=== PATIENT | female | born 2000 | race Caucasian/White ===

== ENCOUNTER → 2022-08-18 | Outpatient (CLI) | payer BC, SELFPAY ==
[2022-08-18 12:10] LABS: Erythrocyte Sedimentation Rate 3 mm/hr (0-30)
[2022-08-18 12:14] LABS: Absolute Lymphocyte Count 1.57 X10^3/uL (0.83-4.51); Absolute Neutrophil Count 3.4 X10^3/uL (2.0-7.7); Basophil# 0.04 X10^3/uL; Basophil% 0.7 % (0-1); Eosinophil# 0.02 X10^3/uL; Eosinophils% 0.4 % (0-5); Hematocrit 43.2 % (37-47); Hemoglobin 14.5 g/dL (12.0-15.0); Lymphocyte # 1.57 X10^3/ul (0.83-4.51); Mean Corp Hgb Conc 33.6 g/dL (32-36); Mean Corpuscular Volume 92.3 fL (81-99); Mean Platelet Vol. 11.1 fl (6.2-12.0); Monocyte# 0.36 X10^3/uL; Monocyte% 6.6 % (0-10); NRBC Flagged by Analyzer 0 % (0-5); Neutrophil # 3.42 X10^3/uL (2.7-7.7); Neutrophil % 63.1 % (47-70); Platelet Count 316 K/mm3 (150-450); RBC Distribution Width CV 12.2 % (11.6-14.6); RBC Distribution Width SD 41.1 fl (35.1-43.9); Red Blood Count 4.68 M/mm3 (4.2-5.4); White Blood Count 5.4 K/mm3 (4.4-11.0)
[2022-08-18 12:56] LABS: AST(SGOT) 16 U/L (15-37); Alanine Aminotransfer ALT/SGPT 16 U/L (13-56); Albumin, Serum 3.9 g/dL (3.2-5.0); Alkaline Phosphatase 62 U/L (45-117); Anion Gap 10 (5-15); BUN 7 mg/dL (7-18); BUN/Creat Ratio 7.5 RATIO (10-20); CRP < 2.90 mg/L (0.0-3.0); Calcium,Total 9.1 mg/dL (8.5-10.1); Chloride 107 mmol/L (98-107); Creatinine, Serum 0.94 mg/dL (0.55-1.02); EST Glomerular Filtration Rate 80 mL/min (>60); Est Glom Filt Rate - Afr Amer 96 mL/min (>60); Globulin 3.9 g/dL (2.2-4.2); Glucose 102 mg/dL (74-106); LDH 153 U/L (84-246); Potassium 3.7 mmol/L (3.5-5.1); Protein, Total 7.8 g/dL (6.4-8.2); Sodium Level 141 mmol/L (136-145)
[2022-08-21 14:08] LABS: Anti-Centromere B Ab <0.2 AI (0.0-0.9); Anti-Chromatin <0.2 AI (0.0-0.9); Anti-Jo <0.2 AI (0.0-0.9); Anti-Scleroderma-70 AB <0.2 AI (0.0-0.9); RNP Ab <0.2 AI (0.0-0.9); SJOGREN'S Anti-SS-A test < 0.2 AI (0.0-0.9); SJOGREN'S Anti-SS-B test < 0.2 AI (0.0-0.9); Smith Ab <0.2 AI (0.0-0.9)
[2022-08-21 14:32] LABS: Anti-dsDNA Ab 1 IU/mL (0-9)
[2022-08-21 16:09] LABS: Endomysial Antibody IgA Negative (Negative)
[2022-08-21 17:45] LABS: Immunoglobulin A 201 mg/dL (87-352); t-Transglutaminase IgA <2 U/mL (0-3)
[2022-08-21 18:07] LABS: Albumin 3.8 g/dL (2.9-4.4); Alpha-1-Globulins 0.4 g/dL (0.0-0.4); Alpha-2-Globulins 0.8 g/dL (0.4-1.0); Cytoplasmic Ab (C-ANCA) <1:20 titer (Neg:<1:20); Immunoglobulin A 197 mg/dL (87-352); Immunoglobulin E 12 IU/mL (6-495); Immunoglobulin G 1027 mg/dL (586-1602); Immunoglobulin M 103 mg/dL (26-217); PROEL- TOTAL PROTEIN 7.2 g/dL (6.0-8.5)
[2022-08-21 20:09] LABS: Gastrin, Serum 23 pg/mL (0-115); Perinuclear Ab (P-ANCA) <1:20 titer (Neg:<1:20)
== END | disposition home or self-care (01) ==
PROVIDERS: PCP Family Medicine; Referring Provider Internal Medicine Gastroenterology; Visit Provider Internal Medicine Gastroenterology
DX: R19.7 Diarrhea, unspecified (principal)
CPT/HCPCS: 36415; 80053; 82784; 82785; 82941; 83516; 83615; 84165; 85025; 85652; 86140; 86225; 86235; 86255; 86256; 86334

== ENCOUNTER → 2022-08-19 | Outpatient (CLI) | payer BC, SELFPAY ==
[2022-08-24 09:29] LABS: Calprotectin, Stool 18 ug/g (0-120)
[2022-08-26 11:24] LABS: Pancreatic Elastase, Fecal 163 (>200)
== END | disposition home or self-care (01) ==
LOC: LABSPEC 11:30
PROVIDERS: PCP Family Medicine; Visit Provider Internal Medicine Gastroenterology
DX: K58.9 Irritable bowel syndrome, unspecified (principal); R19.7 Diarrhea, unspecified
CPT/HCPCS: 82653; 83630; 83993; 87177; 87209; 87329; 87493; 87506

== ENCOUNTER → 2022-09-22 | Outpatient (CLI) | payer BC, SELFPAY ==
--- NOTE | 2022-09-22 12:45 | NM_ITS ---
CLINICAL: 21-year-old female with history of chronic nausea. SEMI-SOLID PHASE 99m Tc SULFUR COLLOID GASTRIC EMPTYING STUDY COMPARISON: None available FINDINGS: The patient was administered 1.0 mCi of 99m Tc sulfur colloid mixed with oatmeal and consumed per os. Image acquisitions in the anterior-posterior projections were obtained for 60 minutes. There is prompt visualization of the stomach. There is no gastroesophageal reflux identified. First order kinetics are maintained throughout the duration of the acquisitions. The T ? linear fit was calculated to be 127.31 minutes, (Normal: 12-56 minutes). NM/Gastric Emptying Study IMPRESSION: 1. ABNORMAL 99m Tc sulfur colloid semi-solid phase (oatmeal) gastric emptying imaging examination. A. There is delayed semi-solid phase gastric emptying compared to normal controls with maintained first order kinetics throughout all components of the examination. (Mrak et al, J Nucl Med Tech 38: 186, 2010). Electronically Signed: Jaden Nina, at 13:37 EDT ,
== END | disposition home or self-care (01) ==
LOC: NM 12:39
PROVIDERS: PCP Family Medicine; Referring Provider Internal Medicine Gastroenterology; Visit Provider Internal Medicine Gastroenterology
DX: R19.7 Diarrhea, unspecified (principal)
CPT/HCPCS: 78264; A9541

== ENCOUNTER → 2023-07-06 | Outpatient (CLI) | payer BC, SELFPAY ==
[2023-07-06 16:34] LABS: Platelet Count 345 K/mm3 (150-450); RET-HE 33.6 pg (30-35); Reticulocyte Count 1.32 % (0.5-1.5)
[2023-07-06 17:07] LABS: Vitamin B12 338 pg/mL (211-911)
[2023-07-06 17:19] LABS: Ferritin 18 ng/mL (8-252); Free T3 2.7 pg/mL (2.18-3.98); Iron 61 ug/dL (50-170); Iron Binding Capacity,Total 481 ug/dL (250-450); T4 Free Direct 1.04 ng/dL (0.76-1.46); Thyroid Stim Hormone (TSH) 1.19 uIU/mL (0.358-3.74)
--- OUTSIDE RECORDS SUMMARY | 2023-07-06 17:30 | XMS RPT_ITS | CCD ---
Author Name Unknown Address [address] [place] [address] Organization [facility] Care Team Providers Care Seasoner Hand Name Role Phone [email or web address] Maldonado Unavailable Unavailable GLORIA AGUILAR Unavailable Unavailable GLORIA AGUILAR Unavailable Unavailable Valeria Mejia Unavailable Fidelia Hogue Unavailable [phone] Vicente Esteves Admitting Unavailable Danielito, Dr. Ware Attending Unavailable Danielito, Dr. Ware Referring Unavailable Lennie, Dr. Fidelia Gottlieb Primary Care Un available Lennie, Dr. Fidelia Ponce Primary Care Unav ailable Lennie, Dr. Fidelia Ponce Attending Unav ailable Lennie, Dr. Fidelia Ponce Referring Unav ailable Saldana, Chikis Attending Unavailable Self, Referral Referring Unavailable Lennie, Dr. Fidelia Ponce Primary Care Unav ailable Lennie, Dr. Fidelia Ponce Primary Care Unav ailable Saldana, Chikis Attending Unavailable Saldana, Chikis Referring Unavailable Yo, Chikis Attending Unavailable Lennie, Dr. Fidelia Ponce Primary Care Unav ailable Lennie, Dr. Fidelia Ponce Referring Unav ailable VICENTE ESTEVES Attending Unavailable Dr. Fidelia Hogue Primary Care Unav ailable Allergies Allergy Classification Reported Allergen(s) Allergy Type Date of Onset Reaction(s) Facility (1 source) Seasonal allergy; Translations: [SEASONAL ALLERGIES] Propensity to adverse reactions (disorder) [address] [place] [address] Repository Medications Completed/Discontinued Medications Medication Drug Class(es) Dates Sig (Normalized) Sig (Original) acetaminophen 325 mg / oxyCODONE hydrochloride 5 mg oral tablet (1 source) Opioid Agonist Start: 09-07-2021 take 1 tablet by mouth every four hours as needed for pain oxyCODONE-Acetamino phen 5-325 MG Oral Tablet TAKE 1 TABLET BY MOUTH EVERY 4 HOURS NEEDED FOR POST-OPERATIVE PAIN FOR 2 DAYS Quantity: 8 Refills: 0 Ordered: 07-Sep-2021 DO Start : 07-Sep-2021 Complete amoxicillin 875 mg oral tablet (2 sources) Penicillin-class Antibacterial Start: 08-29-2022 take 1 tablet by mouth once daily Amoxicillin 875 MG Oral Tablet TAKE 1 TABLET EVERY 12 HOURS DAILY. Quantity: 14 Refills: 0 Ordered: 29-Aug-2022 Chikis Saldana MD Start : 29-Aug-2022 Active cholestyramine resin 4000 mg powder for oral suspension (1 source) Bile Acid Sequestrant Start: 06-26-2022 Cholestyramine 4 GM Oral Packet MIX THE CONTENTS OF 1 POWDER PACKET WITH 2 TO 6 OZ OF NONCARBONATED BEVERAGE AND DRINK 3 TIMES DAILY. Quantity: 90 Refills: 5 Ordered: 26-Jun-2022 Fidelia Hogue MD Start : 26-Jun-2022 Active Ethinyl Estradiol / Ferrous fumarate / Norethindrone (4 sources) Estrogen Start: 12-20-2021 take 1 tablet by mouth once daily Lo Loestrin Fe 1 MG-10 MCG / 10 MCG Oral Tablet TAKE 1 TABLET DAILY DIRECTED. Quantity: 1 Refills: 11 Ordered: 20-Dec-2021 Chikis Saldana DO Start : 20-Dec-2021 Active fluconazole 100 mg oral tablet (4 sources) Azole Antifungal Start: 08-25-2022 Fluconazole 100 MG Oral Tablet TAKE 1 TABLET Other one tab every 48 hrs x 3 doses Quantity: 3 Refills: 1 Ordered: 25-Aug-2022 Chikis Saldana MD Start : 25-Aug-2022 Active Microgestin 1/20 1-20 MG-MCG Oral Tablet (1 source) Start: 11-09-2022 take 1 tablet by mouth once daily, then take 7 tablets by mouth once daily Microgestin 1/20 1-20 MG-MCG Oral Tablet TAKE 1 TABLET BY MOUTH ONCE DAILY FOR 21 DAYS TAKE 7 TABLET FREE DAYS Quantity: 21 Refills: 0 Ordered: 09-Nov-2022 Chikis Saldana MD Start : 09-Nov-2022 Active Multi Vitamin TABS (9 sources) Multi Vitamin TA BS Quantity: 0 Refills: 0 Ordered: 20-Dec-2021 DO Active Norethindrone Acet-Ethinyl Est 1-20 MG-MCG Oral Tablet (7 sources) Start: 12-26-2021 take 1 tablet by mouth once daily, then take 7 tablets by mouth once daily Norethindrone Acet-Ethinyl Est 1-20 MG-MCG Oral Tablet TAKE 1 TABLET DAILY FOR 21 DAYS, THEN 7 TABLET-FREE DAYS; REPEAT. Quantity: 1 Refills: 10 Ordered: 26-Dec-2021 Chikis Saldana MD Start : 26-Dec-2021 Active Problems Active Problems Problem Classification Problem Date Documented Da te Episodic/Chronic Anxiety disorders (13 sources) Mixed anxiety and depressive disorder; Translations: [Anxiety state, unspecified] Chronic Immunizations and screening for infectious disease (9 sources) Patient encounter status; Translations: [Screening examination for venereal disease] Episodic Menstrual disorders (9 sources) Menorrhagia; Translations: [Excessive or frequent menstruation] Chronic Nausea and vomiting (9 sources) Nausea and vomiting; Translations: [Nausea with vomiting] Episodic Other female genital disorders (4 sources) Vaginal discharge; Translations: [Leukorrhea, not specified as infective] Episodic Other gastrointestinal disorders (5 sources) Diarrhea; Translations: [Diarrhea] Episodic Other screening for suspected conditions (not mental disorders or infectious disease) (11 sources) Cancer cervix screening status; Translations: [Screening for malignant neoplasms of cervix] Onset: 12-20-2021 Episodic Past or Other Problems Problem Classification Problem Date Documented Da te Episodic/Chronic Biliary tract disease (7 sources) Biliary dyskinesia; Translations: [Other specified disorders of gallbladder] Onset: 09-07-2021 Episodic Unclassified (9 sources) Finding of menstrual bleeding; Translations: [Menstruation] Results Test Name Value Interpretation Reference Range Facil ity Vital Signs Date Time Vital Sign Value Performing Clinician Amena smith 08-25-2022 13:48-0400 Body height 167.64 cm Fidelia Hogue Work Phone: [address] Work Phone: 08-25-2022 13:48-0400 Body mass index (BMI) [Ratio] 20.09 kg/m2 Fidelia Hogue Work Phone: [address] Work Phone: 08-25-2022 13:48-0400 Body surface area Derived from formula 1.64 m2 Fidelia Houge Work Phone: [address] Work Phone: 08-25-2022 13:48-0400 Body weight 56.47 kg Fidelia [employer] Work Phone: [address] Work Phone: 08-25-2022 13:48-0400 Diastolic blood pressure 72 mm[Hg] Fidelia Hogue Work Phone: [address] Work Phone: 08-25-2022 13:48-0400 Systolic blood pressure 110 mm[Hg] Fidelia Hogue Work Phone: [address] Work Phone: 06-26-2022 08:23-0500 Body height 167.64 cm Fidelia Hogue Work Phone: [facility] Work Phone: 06-26-2022 08:23-0500 Body mass index (BMI) [Ratio] 19.27 kg/m2 Fidelia [employer] Work Phone: [facility] Work Phone: 06-26-2022 08:23-0500 Body surface area Derived from formula 1.61 m2 Fidelia [employer] Work Phone: [facility] Work Phone: 06-26-2022 08:23-0500 Body weight 54.15 kg Fidelia [employer] Work Phone: [facility] Work Phone: 06-26-2022 08:23-0500 Diastolic blood pressure 76 mm[Hg] Fidelia Hogue Work Phone: [facility] Work Phone: 06-26-2022 08:23-0500 Heart rate 110 /min Fidelia Hogue Work Phone: [facility] Work Phone: 06-26-2022 08:23-0500 SaO2% (BldA) [Mass fraction] 98 % Fidelia Hogue Work Phone: [facility] Work Phone: 06-26-2022 08:23-0500 Systolic blood pressure 100 mm[Hg] Fidelia Hogue Work Phone: [facility] Work Phone: 12-20-2021 08:54-0400 Body height 167.64 cm Fidelia Hogue Work Phone: [address] Work Phone: 12-20-2021 08:54-0400 Body mass index (BMI) [Ratio] 20.07 kg/m2 Fidelia Hogue Work Phone: [address] Work Phone: 12-20-2021 08:54-0400 Body surface area Derived from formula 1.63 m2 Fidelia Hogue Work Phone: [address] Work Phone: 12-20-2021 08:54-0400 Body weight 56.42 kg Fidelia Hogue Work Phone: [address] Work Phone: 12-20-2021 08:54-0400 Diastolic blood pressure 84 mm[Hg] Fidelia Hogue Work Phone: [address] Work Phone: 12-20-2021 08:54-0400 Systolic blood pressure 122 mm[Hg] Fidelia Hogue Work Phone: [address] Work Phone: 07-28-2021 08:17-0500 Body height 167.64 cm Fidelia Hogue Work Phone: [facility] [employer] [facility] Work Phone: 07-28-2021 08:17-0500 Body mass index (BMI) [Ratio] 21.95 kg/m2 Fidelia Hogue Work Phone: [facility] [employer] [facility] Work Phone: 07-28-2021 08:17-0500 Body surface area Derived from formula 1.7 m2 Fidelia Hogue Work Phone: [facility] Work Phone: 07-28-2021 08:17-0500 Body weight 61.69 kg Fidelia Hogue Work Phone: [facility] Work Phone: 07-28-2021 08:17-0500 Diastolic blood pressure 72 mm[Hg] Fidelia Hogue Work Phone: [facility] Work Phone: 07-28-2021 08:17-0500 Heart rate 74 /min Fidelia Hogue Work Phone: [facility] [employer] [facility] Work Phone: 07-28-2021 08:17-0500 SaO2% (BldA) [Mass fraction] 98 % Fidelia Hogue Work Phone: [facility] Work Phone: 07-28-2021 08:17-0500 Systolic blood pressure 120 mm[Hg] Fidelia Hogue Work Phone: [facility] Work Phone: 07-07-2021 08:30-0500 Body height 167.64 cm Valeria L Jackie Work Phone: [facility] Work Phone: 07-07-2021 08:30-0500 Body mass index (BMI) [Ratio] 21.79 kg/m2 Valeria L Jackie Work Phone: [facility] Work Phone: 07-07-2021 08:30-0500 Body surface area Derived from formula 1.69 m2 Valeria L Jackie Work Phone: [facility] Work Phone: 07-07-2021 08:30-0500 Body weight 61.24 kg Valeria L Jackie Work Phone: [facility] Work Phone: 07-07-2021 08:30-0500 Diastolic blood pressure 80 mm[Hg] Valeria L Jackie Work Phone: [facility] Work Phone: 07-07-2021 08:30-0500 Heart rate 80 /min Valeria L Jackie Work Phone: [facility] Work Phone: 07-07-2021 08:30-0500 Systolic blood pressure 122 mm[Hg] Valeria L Jackie Work Phone: [facility] Work Phone: Encounters Encounter Date Encounter Type Care Provider Facility Start: 11-09-2022 Rx Renewal Fidelia carpenter Work Phone: [address] Work Phone: Start: 08-29-2022 AUDIT Fidelia Ju[place] Work Phone: [place] [address] Work Phone: Start: 08-28-2022 Chart Update Fidelia Gera [place] Work Phone: [place] [address] Work Phone: Start: 08-25-2022 Office outpatient vi sit 15 minutes Fidelia Hogue Work Phone: [place] [address] Work Phone: Start: 08-25-[address] Fidelia Hogue Facility:[id number] Start: 06-26-2022 Office outpatient vi sit 15 minutes Fidelia Hogue Work Phone: [facility] Work Phone: Start: 06-26-[address] Fidelia Hogue Facility:[id number] Start: 12-27-2021 Chart Update Fidelia Gera [place] Work Phone: [address] Work Phone: Start: 12-26-2021 AUDIT Fidelia Juarez [place] Work Phone: [place] [address] Work Phone: Start: 12-21-2021 Chart Update Fidelia Gera Ann [place] Work Phone: [place] [address] Work Phone: Start: 12-20-2021 Initial preventive medicine new pt age 18-39yrs Fidelia Hogue Work Phone: [place] [address] Work Phone: Start: 12-20-2021 ambulatory Chikis aSldana Facility: [facility] Start: 09-22-[address] Fidelia Hogue Facility:[id number] Start: 09-22-2021 Postop follow up vis it related to original px Fidelia Hogue Work Phone: [facility] Work Phone: Start: 09-07-2021 End: 09-07-[address] Vicente Esteves Facility:[id number] Start: 08-19-2021 AUDIT Fidelia carpenter Work Phone: [facility] Work Phone: Start: 07-28-2021 Periodic preventive med est patient 18-39 yrs Fidelia Hogue Work Phone: [facility] Work Phone: Start: 07-07-2021 Office consultation new/estab patient 60 min Valeria Mejia Work Phone: [facility] Work Phone: Start: 04-16-2018 End: 04-16-2018 Patient encounter procedure VARUN Alvarado [facility] Procedures Date Procedure Procedure Detail Performing Clinician Laparoscopic cholecystectomy Fidelia Hogue Work Phone: Plan of Treatment Date Care Activity Detail Author Start: 08-03-2022 EPV, Provider: Fidelia Hogue, Status: Pen, Time: 9:00 AM EPV, Provider: Fidelia Hogue, Status: Pen, Time: 9:00 AM [facility] Work Phone: Start: 09-22-2021 POV, Provider: Vicente Esteves, Status: Pen, Time: 3:30 PM POV, Provider: Vicente Esteves, Status: Pen, Time: 3:30 PM [facility] Work Phone: Start: 09-07-2021 [facility]: Vicente Esteves, Status: Pen, Time[facility] 7:30 AM [facility]: Vicente Esteves, Status: Pen, Time: 7:30 AM [facility] Work Phone: Immunizations Immunization Date Immunization Notes Care Provider Cain gaviria 02-03-2022 Fluad Quadrivalent 0 .5 ML Intramuscular Prefilled Syringe Fidelia Hogue Work Phone: [facility] Work Phone: Payers Date Payer Category Payer Unknown [id number] 2000 Unknown [id number] 2000 Unknown [id number] 2.16. [id number] 2000 Unknown [id number] 2.16. [id number] 2000 Unknown [id number] 2.16. [id number] 2000 Unknown [id number] 2.16. [id number] 2000 Unknown [id number] 2.16. [id number] 1972 Unknown [id number] [id number] Unknown [id number] Unknown Social History Date Type Detail Facility Non-smoker Non-smoker [facility] Work Phone: Clinical Note 12-20-2021 Note Date & Type Note Facility 12-20-2021 Note 25 Date of Procedure: 12/20/2021 Pathologist: [facility], Cytology Date Reported: 12/27/2021 Date Received: 12/20/2021 Submitting Physician: CHIKIS SALDANA M.D. Attending Physician: CHIKIS SALDANA M.D. FINAL CYTOLOGICAL INTERPRETATION A. THINPREP PAP CERVICAL: Specimen adequacy: SATISFACTORY FOR EVALUATION. Quality Indicator: Endocervical/transformation zone component is present. Quality Indicator: Partially obscuring inflammation. General Categorization: NEGATIVE FOR INTRAEPITHELIAL LESION OR MALIGNANCY. Ancillary Testing: Specimen does not meet the requisition-stated criteria for HPV testing. See Pap test interpretation above. This specimen has been analyzed by the UbiregiPrep Imaging System ([employer] an automated imaging and review system, which assists the laboratory in evaluating cells on ThinPrep Pap tests. Following automated imaging, selected gasca from every slide were reviewed by a fixed wing aircraft flight engineer and/or pathologist. Electronically Signed Out By [facility], Cytology//CRR By the signature on this report, the individual or group listed as making the Final Interpretation/Diagnosis certifies that they have reviewed this case. Diagnostic interpretation performed at [place] [id number] Educational Note: Cervical cytology is a screening procedure primarily for squamous cancers and precursors and has associated false-negative and false-positive results as evidenced by published data. Your patient?s test should be interpreted in this context, together with patient?s history and clinical findings. Regular sampling and follow-up of unexplained clinical signs and symptoms are recommended to minimize false negative results. Clinical History Date of Last Menstrual Period: 12/14/2021 Other Clinical Conditions: HPV Reflex for ASC-US only - Include HPV Genotype Annual Clinical Diagnosis History: Screening for cervical cancer - (Z12.4) Source of Specimen A: THINPREP PAP CERVICAL [facility] Department of Pathology [address] [place] [address] History of Present illness Narrative 09-07-2021 Note Date & Type Note Facility 09-07-2021 History of Present illness Narrative Ms. Marcos is a 20-year-old female s/p laparoscopic cholecystectomy on 09/07/2021 for biliary dyskinesia. The postprandial right upper quadrant abdominal pain that she had prior to surgery is completely resolved. Few she feels well overall. She denies any fever, redness or drainage from incisions. She denies any yellowing of skin or eyes or dark-colored urine. She has already returned to work. -[facility] Work Phone: Clinical Note 09-07-2021 Note Date & Type Note Facility 09-07-2021 Note Post Operative Note: PreOp Diagnosis: Biliary dyskinesia Post-Procedure Diagnosis: Biliary dyskinesia Procedure: Laparoscopic cholecystectomy Surgeon: Vicente Esteves Resident/Fellow/Other Industrial Education Instructor: Anesthesia: General Estimated Blood Loss (mL): 10cc Specimen: yes. Gallbladder Complications: None Findings: Omental adhesions to gallbladder, mild inflammatory changes. Otherwise, normal anatomy. Thin walled gallbladder. Patient Returned To/Condition: PACU / Stable Operative Report Dictated: Dictation: not applicable - note contains Operative Report Operative Report: Indication: Patient is a 20-year-old female with biliary dyskinesia and gallbladder sludge. She is having post-prandial right upper abdominal pain on a regular basis. Risks and benefits of cholecystectomy were discussed and the patient was agreeable to proceed with surgery. Procedure: The patient was brought to the operating room and placed in supine position. General anesthesia was induced. The patient's abdomen was prepped and draped. Through a vertical umbilical incision, a 12mm port was placed using Amber technique. Three 5mm ports were placed in the upper abdomen under direct visualization. The patient was placed in reverse Trendelenburg position and tilted slightly towards the left. The gallbladder had flimsy omental adhesions and consistent with previous inflammation, but was thin walled. The gallbladder was grasped by the fundus and retracted cephalad. Adhesions to the infundibulum were taken down with combination of blunt dissection and electrocautery. The peritoneum was opened to separate the gallbladder neck from the liver. The cystic duct and artery were dissected and a critical view of safety was obtained. The cystic duct and artery were clipped, with two clips proximally and one clip distally, and divided. The gallbladder was removed from the hepatic bed using electrocautery. There was no spillage of bile. Hemostasis was confirmed. The camera was changed to a 5mm scope. The gallbladder was placed in an Endocatch bag and removed via the umbilical port. The 5mm ports were removed. The fascial defect at the umbilicus was closed with 0 Vicryl. Skin incisions were closed with 4-0 Vicryl and steri strips. The patient tolerated the procedure well, was extubated and transferred to PACU in stable condition. Electronic Signatures: Vicente Esteves) (Signed 07-Sep-2021 13:00) Authored: Post Operative Note, Note Completion Last Updated: 07-Sep-2021 13:00 by Vicente Esteves) [facility] Clinical Note 09-07-2021 Note Date & Type Note Facility 09-07-2021 Note History of Present I llness: /Lactating: Are You no Are You Currently Breastfeedingno History Present Illness: Reason for surgery: RUQ pain HPI: Ms. Marcos is a 20yo female seen at the request of PAIGE Dietrich, at [facility] for evaluation of postprandial right upper quadrant abdominal pain. This has been going on for about a year. She initially tried taking Lactaid as she thought she might be lactose intolerant. She has since noticed that her symptoms correlate with eating fried food, burgers, or greasy food in general. Symptoms can last up to an hour. She is having this pain on an almost daily basis. She also reports having bowel movements almost immediately after eating. She has associated nausea, but no vomiting. She has anxiety and depression but is otherwise healthy. She has no previous abdominal surgery. Allergies: Allergies: No Known Allergies: Home Medication Review: Home Medications Reviewed: yes Impression/Procedure: Impression and Planned Procedure: Ms. Marcos is a 20yo female with biliary dyskinesia and gallbladder sludge. Risks, benefits and alternatives of laparoscopic cholecystectomy were discussed with the patient. This included risk of bleeding, infection, conversion to an open procedure, bile leakage or bile duct injury, post-cholecystectomy diarrhea, possible non-resolution or recurrence of symptoms, and possible need for subsequent endoscopic or surgical interventions. The patient is leaning towards proceeding with surgery. However, she would like to discuss this with her father. We signed consent forms today but did not put her on the schedule. She is thinking she would like to wait until early August when things slow down at work for her. She will call us if and when she is ready to schedule cholecystectomy. ERAS (Enhanced Recovery After Surgery): ERAS Patient: no Physical Exam by System: Constitutional: No acute distress, conversant and pleasant Eyes: PERRL ENMT: mucous membranes moist Head/Neck: Grossly normal Respiratory/Thorax: No labored breathing Cardiovascular: NSR Gastrointestinal: soft, nondistended, thin with BMI 22, no surgical scars, tender to palpation in the right upper quadrant without Stacy's sign Extremities: normal extremities, no edema Neurological: alert and oriented x3 Lymphatic: No significant lymphadenopathy Psychological: Appropriate mood and behavior Skin: Warm and dry, red hair Consent: COVID-19 Consent: COVID-19 Risk ConsentSurgeon has reviewed gasca risks related to the risk of erika COVID-19 and if they contract COVID-19 what the risks are. Electronic Signatures: Vicente Esteves) (Signed 07-Sep-2021 07:23) Authored: History of Present Illness, Allergies, Home Medication Review, Impression/Procedure, ERAS, Physical Exam, Consent, Note Completion Last Updated: 07-Sep-2021 07:23 by Vicente Esteves) [facility] History of Present illness Narrative Note Date & Type Note Facility History of Present illness Narrative Ms. Marcos is a 20yo female seen at the request of PAIGE Dietrich, at [facility] for evaluation of postprandial right upper quadrant abdominal pain. This has been going on for about a year. She initially tried taking Lactaid as she thought she might be lactose intolerant. She has since noticed that her symptoms correlate with eating fried food, burgers, or greasy food in general. Symptoms can last up to an hour. She is having this pain on an almost daily basis. She also reports having bowel movements almost immediately after eating. She has associated nausea, but no vomiting. She has anxiety and depression but is otherwise healthy. She has no previous abdominal surgery. -[facility] Work Phone: History of Present illness Narrative Note Date & Type Note Facility History of Present illness Narrative Here to get established. She has had some issues with her gallbladder/digestion - states that she will be having her gallbladder out next month. She is otherwise doing well. She takes OCPs as her only medication. -[facility] Work Phone: History of Present illness Narrative Note Date & Type Note Facility History of Present illness Narrative Patient is a 21-year-old who comes in for routine [employer]MEDI[employer] exam. Patient reports that she has been on Sprintec since about age 15 to regulate her menses. However the patient believes that she may need to change her control pills. She reports that with the Sprintec she has significant GI symptoms when on her menses and usually has vomiting. She also reports very heavy periods the first couple of days as well as significant dysmenorrhea. She also says that with the onset of her period she usually has a really bad headache for about 2 days. Patient believes that she would like to try a different control pill at this point. Patient has no additional concerns at present [facility] [employer] Phone: History of Present illness Narrative Note Date & Type Note Facility History of Present illness Narrative Here c/o diarrhea after eating. She did have her gallbladder removed last August. Having some nausea as well, but the diarrhea is the main complaint. She states that it is pretty much every time she eats - she does not recall having this issue before the gallbladder was removed. She does have an appointment with Dr Glory DE OLIVEIRA in [place] - next month. -[facility] [employer] Phone: History of Present illness Narrative Note Date & Type Note Facility History of Present illness Narrative Gelacio reports that for couple weeks she has been having vulvar itching and discomfort she has tried [id number] salves without any relief. [facility]: Summary Purpose Family History Unknown Family Member Name Dates Details Family history of thyroid di sease: Paternal Great Grandmother, Aunt(V18.19, Z83.49) Status:Active Unknown Family Member Name Dates Details Family history of thyroid di sease: Paternal Great Grandmother, Aunt(V18.19, Z83.49) Status:Active Unknown Family Member Name Dates Details Family history of thyroid di sease: Paternal Great Grandmother, Aunt(V18.19, Z83.49) Status:Active Unknown Family Member Name Dates Details Family history of thyroid di sease: Paternal Great Grandmother, Aunt(V18.19, Z83.49) Status:Active Unknown Family Member Name Dates Details Family history of thyroid di sease: Paternal Great Grandmother, Aunt(V18.19, Z83.49) Status:Active Family history of hypertensi on: Father(V17.49, Z82.49) Status:Active Family history of asthma: Mo ther(V17.5, Z82.5) Status:Active Family history of malignant neoplasm of breast: Maternal Grandmother(V16.3, Z80.3) Status:Active Family history of malignant neoplasm of ovary: Maternal Grandmother, Maternal Great Grandmother(V16.41, Z80.41) Status:Active Unknown Family Member Name Dates Details Family history of thyroid di sease: Paternal Great Grandmother, Aunt(V18.19, Z83.49) Status:Active Family history of hypertensi on: Father(V17.49, Z82.49) Status:Active Family history of asthma: Mo ther(V17.5, Z82.5) Status:Active Family history of malignant neoplasm of ovary: Maternal Grandmother, Maternal Great Grandmother(V16.41, Z80.41) Status:Active Family history of malignant neoplasm of breast: Maternal Grandmother(V16.3, Z80.3) Status:Active Unknown Family Member Name Dates Details Family history of thyroid di sease: Paternal Great Grandmother, Aunt(V18.19, Z83.49) Status:Active Family history of hypertensi on: Father(V17.49, Z82.49) Status:Active Family history of asthma: Mo ther(V17.5, Z82.5) Status:Active Family history of malignant neoplasm of breast: Maternal Grandmother(V16.3, Z80.3) Status:Active Family history of malignant neoplasm of ovary: Maternal Grandmother, Maternal Great Grandmother(V16.41, Z80.41) Status:Active Unknown Family Member Name Dates Details Family history of thyroid di sease: Paternal Great Grandmother, Aunt(V18.19, Z83.49) Status:Active Family history of hypertensi on: Father(V17.49, Z82.49) Status:Active Family history of asthma: Mo ther(V17.5, Z82.5) Status:Active Family history of malignant neoplasm of breast: Maternal Grandmother(V16.3, Z80.3) Status:Active Family history of malignant neoplasm of ovary: Maternal Grandmother, Maternal Great Grandmother(V16.41, Z80.41) Status:Active Unknown Family Member Name Dates Details Family history of thyroid di sease: Paternal Great Grandmother, Aunt(V18.19, Z83.49) Status:Active Family history of hypertensi on: Father(V17.49, Z82.49) Status:Active Family history of asthma: Mo ther(V17.5, Z82.5) Status:Active Family history of malignant neoplasm of breast: Maternal Grandmother(V16.3, Z80.3) Status:Active Family history of malignant neoplasm of ovary: Maternal Grandmother, Maternal Great Grandmother(V16.41, Z80.41) Status:Active Unknown Family Member Name Dates Details Family history of thyroid di sease: Paternal Great Grandmother, Aunt(V18.19, Z83.49) Status:Active Family history of hypertensi on: Father(V17.49, Z82.49) Status:Active Family history of asthma: Mo ther(V17.5, Z82.5) Status:Active Family history of malignant neoplasm of breast: Maternal Grandmother(V16.3, Z80.3) Status:Active Family history of malignant neoplasm of ovary: Maternal Grandmother, Maternal Great Grandmother(V16.41, Z80.41) Status:Active Unknown Family Member Name Dates Details Family history of thyroid di sease: Paternal Great Grandmother, Aunt(V18.19, Z83.49) Status:Active Family history of hypertensi on: Father(V17.49, Z82.49) Status:Active Family history of asthma: Mo ther(V17.5, Z82.5) Status:Active Family history of malignant neoplasm of breast: Maternal Grandmother(V16.3, Z80.3) Status:Active Family history of malignant neoplasm of ovary: Maternal Grandmother, Maternal Great Grandmother(V16.41, Z80.41) Status:Active Unknown Family Member Name Dates Details Family history of thyroid di sease: Paternal Great Grandmother, Aunt(V18.19, Z83.49) Status:Active Family history of hypertensi on: Father(V17.49, Z82.49) Status:Active Family history of asthma: Mo ther(V17.5, Z82.5) Status:Active Family history of malignant neoplasm of breast: Maternal Grandmother(V16.3, Z80.3) Status:Active Family history of malignant neoplasm of ovary: Maternal Grandmother, Maternal Great Grandmother(V16.41, Z80.41) Status:Active Unknown Family Member Name Dates Details Family history of thyroid di sease: Paternal Great Grandmother, Aunt(V18.19, Z83.49) Status:Active Family history of hypertensi on: Father(V17.49, Z82.49) Status:Active Family history of asthma: Mo ther(V17.5, Z82.5) Status:Active Family history of malignant neoplasm of breast: Maternal Grandmother(V16.3, Z80.3) Status:Active Family history of malignant neoplasm of ovary: Maternal Grandmother, Maternal Great Grandmother(V16.41, Z80.41) Status:Active Advance Directives No Advanced Directives Records FoundNo Advanced Directives Records FoundNo Advanced Directives Records FoundNo Advanced Directives Records FoundNo Advanced Directives Records Found Chief Complaint Postprandial right upper quadrant abdominal painNPV to establish cares/p laparoscopic cholecystectomyNew Patient here today for first annual. She has no concerns. Never had a pap test before. She is sexually active. She is on Sprintec control for 6 years but is not helping with her period symptoms. During her period she experiences migraines, nausea, vomiting, and lots of cramping and clotting. LMP:2diarrhea after meals, has tried cutting out different foods/gluten, no relief, n/vPT IS HERE TODAY FOR VAGINAL ITCHING AND IT FEELS SORE AND DRY. DENIES ANY DISCHARGE. HAS TRIED VASELINE AND IT HAS HELPED SOME. X'S 2 WEEKS. LMP: 08/21/22 Additional Source Comments INFORMATION SOURCE (unrecogn ized section and content) DATE CREATED AUTHOR AUTHOR'S ORGANIZ ATION 10/18/2018 [facility] DATE CREATED AUTHOR AUTHOR'S ORGANIZ ATION 08/16/2022 [facility] DATE CREATED AUTHOR AUTHOR'S ORGANIZ ATION 08/30/2022 [facility] DATE CREATED AUTHOR AUTHOR'S ORGANIZ ATION 08/30/2022 [employer] FOR RECORDS PERTAINING TO PATIENTS WHO ARE OR HAVE BEEN ENROLLED IN A CHEMICAL DEPENDENCY/SUBSTANCEABUSE PROGRAM, SOME INFORMATION MAY BE OMITTED. This clinical summary was aggregated from multiple sources. Caution should be exercised in using it in the provision of clinical care. This summary normalizes information from multiple sources, and as a consequence, information in this document may materially change the coding, format and clinical context of patient data. In addition, data may be omitted in some cases. CLINICAL DECISIONS SHOULD BE BASED ON THE PRIMARY CLINICAL RECORDS. [facility] [employer] [facility] provides no warranty or guarantee of the accuracy or completeness of information in this document.
[2023-07-10 08:12] LABS: Albumin 4.1 g/dL (2.9-4.4); Alpha-1-Globulins 0.3 g/dL (0.0-0.4); Alpha-2-Globulins 0.7 g/dL (0.4-1.0); Anti-Thyroglobulin AB < 1.0 IU/mL (0.0-0.9); Gastrin, Serum 29 pg/mL (0-115); Haptoglobin 86 mg/dL (33-278); Immunoglobulin A 216 mg/dL (87-352); Immunoglobulin G 1093 mg/dL (586-1602); Immunoglobulin M 115 mg/dL (26-217); PROEL- TOTAL PROTEIN 7.3 g/dL (6.0-8.5); Thyroglobulin, Serum Qt. 50.8 ng/mL (1.5-38.5); Thyroid Peroxidase AB < 9 IU/mL (0-34)
== END | disposition home or self-care (01) ==
LOC: LAB 15:47
PROVIDERS: PCP Family Medicine; Referring Provider Internal Medicine Gastroenterology; Visit Provider Internal Medicine Gastroenterology
DX: R19.5 Other fecal abnormalities (principal); K31.84 Gastroparesis
CPT/HCPCS: 36415; 82607; 82728; 82746; 82784; 82941; 83010; 83540; 83550; 84165; 84432; 84439; 84443; 84481; 85045; 86334; 86376; 86800

== ENCOUNTER → 2024-07-15 | Outpatient (CLI) | payer BC, SELFPAY ==
[2024-07-15 09:49] LABS: T4 Free Direct 1.05 ng/dL (0.76-1.46)
== END | disposition home or self-care (01) ==
PROVIDERS: PCP Family Medicine; Referring Provider Internal Medicine Gastroenterology; Visit Provider Internal Medicine Gastroenterology
DX: R94.6 Abnormal results of thyroid function studies (principal)
CPT/HCPCS: 36415; 84439; 84443; 84481

== ENCOUNTER → 2025-03-26 | Outpatient (CLI) | payer BC, SELFPAY | END | disposition home or self-care (01) | LOC: LABSPEC 10:25 | PROVIDERS: PCP Family Medicine; Visit Provider Nurse Practitioner Family | DX: Z12.4 Encounter for screening for malignant neoplasm of cervix (principal) | CPT/HCPCS: 88175; G0145 ==